=== PATIENT | male | born 1965 | race African-American/Black ===

== ENCOUNTER 2016-11-23 01:58 | Emergency (ER) | payer MEDICAID, OTHER ==
[~2016-11-23] VITALS: Ht 190.5 cm; Wt 134.7 kg
[~2016-11-23 01:58] MED LIST: ALBUTEROL SULF8.5 GM INH; AZITHROMYCIN250 MG ORAL; IBUPROFEN600 MG ORAL; NORCO 5-325 TA1 EACH ORAL; PREDNISONE20 MG ORAL
[2016-11-23] MEDS ORDERED: AMLODIPINE BESY10 MG ORAL (02:17)
[2016-11-23] MEDS ORDERED: METFORMIN HCL1000 M1 ORAL (02:17)
[2016-11-23] MEDS ORDERED: GLIPIZIDE5 MG ORAL (02:17)
[2016-11-23] MEDS ORDERED: HYDROCHLOROTHIA25 MG ORAL (02:17)
[2016-11-23] MEDS ORDERED: NORCO 10-325 T1 EACH ORAL (02:17)
[2016-11-23 02:40] LABS: APPEARANCE,URINE CLEAR; KETONES,URINE NEGATIVE (NEGATIVE); LEUKOCYTE ESTERASE ,URINE 1+ (NEGATIVE); NITRITE,URINE NEGATIVE (NEGATIVE); PH,URINE 5 (4.5-8.0); PROTEIN,URINE 2+ (NEGATIVE); UROBILINOGEN,URINE NORMAL MG/DL (0.0-1.0)
[2016-11-23 02:54] LABS: RBC,URINE 0-2 /HPF (0 - 0); SQUAMOUS EPITHELIAL CELL,UR FEW /LPF (NONE/OCC)
[2016-11-23] MEDS ORDERED: Ketorolac 60mg Inj IM ONE (03:45)
[2016-11-23] MEDS ORDERED: HYDROmorphone 1mg/ml Carpuject IM ONE (03:45)
[2016-11-23] MEDS ORDERED: CYCLOBENZAPRINE10 MG ORAL (03:55)
[2016-11-23 04:08] VITALS: BP 148/86
--- NOTE | 2016-11-23 04:21 | Emergency Room Report ---
History of Present Illness General Chief Complaint: Pain Source: Patient Present Illness HPI Patient is a 50-year-old male presented after increased right-sided shoulder pain. Patient prior history of rotator cuff injury to that side. Patient stated that he been having increased pain to the area. This has not been relieved by his usual medications. Patient had been having increased headache gradual onset. He denies any chest pain or shortness of breath. Patient prior history of diabetes as well as cigarette smoking. Pain is worse with movement to the right shoulder Allergies: Coded Allergies: No Known Allergies (Unverified , 11/23/16) Patient History Past Medical History: see triage record Reviewed Nursing Documentation: PMH: Agreed, PSxH: Agreed Nursing Documentation-PMH Hx Hypertension: Yes Hx Diabetes: Yes - Type 2DM Hx Seizures: Yes Review of Systems All Other Systems: negative except mentioned in HPI Physical Exam Vital Signs Date Time Temp Pulse Resp B/P Pulse Ox O2 Delivery O2 Flow Rate FiO2 11/23/16 02:13 99.1 106 16 124/84 98 Room Air General Appearance: well appearing, no apparent distress, alert, GCS 15 Head: normocephalic, atraumatic ENT: hearing grossly normal, normal voice Neck: full range of motion, supple Respiratory: normal breath sounds, no respiratory distress, speaking full sentences Gastrointestinal: normal inspection, soft Musculoskeletal: no calf tenderness Neurologic: normal inspection, alert, oriented x3, responsive, normal gait Psychiatric: mood/affect normal Skin: no rash Medical Decision Making Diagnostic Impression: Primary Impression: Hyperglycemia Additional Impression: Rotator cuff injury ER Course This presented for headache. Differential diagnoses included but was not limited to skull fracture, subarachnoid hemorrhage, meningitis, aneurysm, mass lesion, intracranial hemorrhage.Because of complexity of patient's case laboratory testing and imaging studies were ordered. The patient noted to have a moderately elevated blood sugar. Patient was advised dietary compliance. CT the head was ordered due to the patient's headache. CT the head read by radiology showed questionable low-lying cerebellar tonsils without evident mass or hemorrhage. The patient was advised to be more compliant with his diabetic diet. The patient is advised to follow up with primary care doctor in 1-2 days. Patient is advised to return if any worsening condition or if any changes in status that are concerning. Last Vital Signs Date Time Temp Pulse Resp B/P Pulse Ox O2 Delivery O2 Flow Rate FiO2 11/23/16 02:13 99.1 106 16 124/84 98 Room Air Status: improved Disposition: HOME, SELF-CARE Condition: Stable Scripts Cyclobenzaprine Hcl* (FLEXERIL*) 10 Mg Tablet 10 MG ORAL THREE TIMES A DAY, #20 TAB Prov: Logan Celaya 11/23/16 Patient Instructions: Hyperglycemia Logan Celaya Nov 23, 2016 04:21
--- NOTE | 2016-11-23 09:11 | Diagnostic Imaging Report ---
Indication: PAIN Technique: Continuous helical CT scanning of the head was performed without intravenous contrast material. Axial and coronal 5 mm sections were generated. Radiation dose was minimized using automated exposure control Dose: Total Dose Length Product - DLP [address] Dose Index - CTDIvol(s) 70.38 mGy. Comparison: None Findings: The ventricular system is normal in size and configuration. There is no shift of midline structures. No abnormal extra-axial fluid collections are noted. There is no evidence of intracerebral bleeding. No other abnormal high or low density areas are noted within the brain. Intact calvarium there are questionably low-lying cerebellar tonsils Visualized orbits and sinuses are unremarkable. Impression: Possible low lying cerebellar tonsils Otherwise normal CT scan of the head without contrast material. This agrees with the preliminary interpretation provided overnight by [facility] service. The CT scanner at [facility] is accredited by the [employer] and the scans are performed using protocols designed to limit radiation exposure to as low as reasonably achievable to attain images of sufficient resolution adequate for diagnostic evaluation.
== END 2016-11-23 04:08 | disposition home or self-care (01) ==
LOC: EMR 02:26
DX: S46.091A Other injury of muscle(s) and tendon(s) of the rotator cuff of right shoulder, initial encounter (principal); X58.XXXA Exposure to other specified factors, initial encounter; Y92.89 Other specified places as the place of occurrence of the external cause; E11.65 Type 2 diabetes mellitus with hyperglycemia
CPT/HCPCS: 70450; 81003; 96372; 99284; J1170

== ENCOUNTER 2018-03-31 12:31 | Emergency (ER) | payer MEDICAID ==
[~2018-03-31] VITALS: Ht 190.5 cm; Wt 134.7 kg
[~2018-03-31 12:31] MED LIST changes: +AMLODIPINE BESY10 MG ORAL; +CYCLOBENZAPRINE10 MG ORAL; +GLIPIZIDE5 MG ORAL; +HYDROCHLOROTHIA25 MG ORAL; +METFORMIN HCL1000 M1 ORAL; +NORCO 10-325 T1 EACH ORAL
[2018-03-31 12:52] VITALS: BP 161/99
--- NOTE | 2018-03-31 13:00 | Emergency Room Report ---
History of Present Illness General Chief Complaint: Abdominal Pain Source: Patient Present Illness HPI 52-year-old male with history of hypertension and diabetes as well as heavy tobacco smoker here complaining of 3 days of left lower abdominal pain and left flank pain. He denies any strenuous physical activity or fall. He is rating the pain 10 out of 10 and constant. Has not taken any medication for pain. Denies nausea, vomiting, fever, chills, diarrhea, blood in the stool, constipation. He reports that few days prior to the onset of his symptoms he felt a sharp pain in his chest which immediately went away without any radiation to jaw or arm. Denies shortness of breath and chest pain and palpitation at this moment. Denies recent travel, recent alcohol ingestion, or any drug use. Has not started any medication. Denies feeling a pulsatile mass in his abdomen. Denies urinary symptoms such as dysuria, hematuria, suprapubic pain.he is taking hydrochlorothiazide and amlodipine for HTN as well as metformin and glipizide for diabetes Allergies: Coded Allergies: No Known Allergies (Unverified , 11/23/16) Patient History Past Medical History: see triage record Past Surgical History: none Pertinent Family History: unable to obtain Social History: Reports: smoking - daily tobacco smoker 20 years Immunizations: UTD Reviewed Nursing Documentation: PMH: Agreed; PSxH: Agreed Nursing Documentation-PMH Past Medical History: No History, Except For Hx Hypertension: Yes Hx Diabetes: Yes - Type 2DM Hx Seizures: Yes Review of Systems All Other Systems: negative except mentioned in HPI Physical Exam Vital Signs Date Time Temp Pulse Resp B/P (MAP) Pulse Ox O2 Delivery O2 Flow Rate FiO2 03/31/18 12:32 98.2 97 17 161/99 97 Room Air Sp02 EP Interpretation: reviewed, normal General Appearance: normal inspection, well appearing, no apparent distress, alert, GCS 15 Head: normocephalic, atraumatic Eyes: bilateral eye normal inspection, bilateral eye PERRL ENT: normal ENT inspection, hearing grossly normal, normal pharynx, no angioedema Neck: normal inspection, full range of motion, supple Respiratory: normal inspection, chest non-tender, lungs clear, no rhonchi, no wheezing Cardiovascular #1: normal inspection, regular rate, rhythm, no edema, no gallop , no murmur Gastrointestinal: normal bowel sounds, no mass, no organomegaly, no peritonitis , no guarding, no pulsatile mass - no sign of AAA, tenderness - LLQ and left flank, no CVAT Rectal: deferred Genitourinary: deferred Musculoskeletal: normal inspection, digits/nails normal, gait/station normal, other - difficulty changing position from sitting to standingdue to left LQ pain Neurologic: normal inspection, alert, oriented x3, responsive Psychiatric: normal inspection, judgement/insight normal, memory normal Skin: normal inspection, normal color, no rash, warm/dry, palpation normal Lymphatic: normal inspection, no adenopathy, axilla node tender (R) Medical Decision Making PA Attestation all diagnoses and treatment plans are reviewed and discussed with my supervising physician Dr. Celaya Diagnostic Impression: Primary Impression: UTI (urinary tract infection) Additional Impressions: Fatty liver Diabetes type 2, uncontrolled PVC (premature ventricular contraction) Muscle strain ER Course 52-year-old male with history of hypertension and diabetes as well as heavy tobacco smoker here complaining of 3 days of left lower abdominal pain and left flank pain. He denies any strenuous physical activity or fall. He is rating the pain 10 out of 10 and constant. Has not taken any medication for pain. Denies nausea, vomiting, fever, chills, diarrhea, blood in the stool, constipation. He reports that few days prior to the onset of his symptoms he felt a sharp pain in his chest which immediately went away without any radiation to jaw or arm. Denies shortness of breath and chest pain and palpitation at this moment. Denies recent travel, recent alcohol ingestion, or any drug use. Has not started any medication. Denies feeling a pulsatile mass in his abdomen. Denies urinary symptoms such as dysuria, hematuria, suprapubic pain. Ddx considered but are not limited to AAA, diverticulitis, renal stone, diverticulosis, muscle strain, STEMI Vital signs: are WNL, pt. is afebrile H&PE are most consistent with fatty liver, muscle strain, UTI(possible prosthatitis), DMII uncontrolled, PVC ORDERS: abdominal CT, lipase, CBC, CMP, UA, EKG, troponin, urine tox. , cipro 500mg ED INTERVENTIONS: None required at this time. DISCHARGE: At this time pt. is stable for d/c to home. Will provide printed patient care instructions, and any necessary prescriptions. Care plan and follow up instructions have been discussed with the patient prior to discharge. glucose: 341, UA: 4+ glucose, plt 133, Hgb 14, leuk and WBC in UA, blood 1+ UA, EKG Diagnostic Results EP Interpretation: PVC ant leads, possible STEIM, Qwaves ant leads Rhythm: other ST Segments: other - PVC, Q waves ant leads CT/MRI/US Diagnostic Results CT/MRI/US Diagnostic Results : Imaging Test Ordered: CT abdomen no contrast Impression fatty liver CLINICAL HISTORY: PAIN TECHNIQUE: Axial computed tomography images of the abdomen and pelvis without intravenous contrast. CTDI is 18.84 mGy and DLP is 1155 mGy-cm. One or more of the following dose reduction techniques were used: automated exposure control, adjustment of the mA and/or kV according to patient size, use of iterative reconstruction technique. COMPARISON: No relevant prior studies available. FINDINGS: Lung bases: Unremarkable. ABDOMEN: Liver: Large fatty liver. Gallbladder and bile ducts: No calcified stones. No ductal dilation. Pancreas: Unremarkable. Spleen: Unremarkable. Adrenals: Unremarkable. Kidneys and ureters: Left pelvic kidney. No renal calculi or obstructive changes. Stomach and bowel: No beryl mural thickening. Nonobstructive bowel gas pattern. PELVIS: Appendix: Appendix not identified. Bladder: Unremarkable. Reproductive: Unremarkable. ABDOMEN and PELVIS: Intraperitoneal space: Unremarkable. Bones/joints: No acute fracture. Soft tissues: Unremarkable. Vasculature: Unremarkable. No abdominal aortic aneurysm. Lymph nodes: No enlarged lymph nodes. IMPRESSION: 1. Large fatty liver. 2. Left pelvic kidney. No renal calculi or obstructive changes. 3. Appendix not identified. Last Vital Signs Date Time Temp Pulse Resp B/P (MAP) Pulse Ox O2 Delivery O2 Flow Rate FiO2 03/31/18 12:46 97 17 Room Air 03/31/18 12:32 98.2 161/99 97 Disposition: HOME, SELF-CARE Condition: Stable Scripts Ciprofloxacin* (CIPRO*) 500 Mg Tablet 500 MG PO BID for 7 Days, #14 TAB Prov: Erica aHle 03/31/18 Patient Instructions: Abdominal Pain, Adult, Diabetes Mellitus and Food, Urinary Tract Infection, [id number] Additional Instructions: follow with primary care provider for management of diabetes, continue taking metformin and glipizide, Primary care provider to cardiology referral for abnormal EKG, take medication as directed, has primary care provider check for PSA and further examined prostate. Erica Hale Mar 31, 2018 13:00
--- NOTE | 2018-03-31 13:43 | Diagnostic Imaging Report ---
EXAM: CT Abdomen and Pelvis Without Intravenous Contrast CLINICAL HISTORY: PAIN TECHNIQUE: Axial computed tomography images of the abdomen and pelvis without intravenous contrast. CTDI is 18.84 mGy and DLP is 1155 mGy-cm. One or more of the following dose reduction techniques were used: automated exposure control, adjustment of the mA and/or kV according to patient size, use of iterative reconstruction technique. COMPARISON: No relevant prior studies available. FINDINGS: Lung bases: Unremarkable. ABDOMEN: Liver: Large fatty liver. Gallbladder and bile ducts: No calcified stones. No ductal dilation. Pancreas: Unremarkable. Spleen: Unremarkable. Adrenals: Unremarkable. Kidneys and ureters: Left pelvic kidney. No renal calculi or obstructive changes. Stomach and bowel: No beryl mural thickening. Nonobstructive bowel gas pattern. PELVIS: Appendix: Appendix not identified. Bladder: Unremarkable. Reproductive: Unremarkable. ABDOMEN and PELVIS: Intraperitoneal space: Unremarkable. Bones/joints: No acute fracture. Soft tissues: Unremarkable. Vasculature: Unremarkable. No abdominal aortic aneurysm. Lymph nodes: No enlarged lymph nodes. IMPRESSION: 1. Large fatty liver. 2. Left pelvic kidney. No renal calculi or obstructive changes. 3. Appendix not identified.
[2018-03-31 13:58] LABS: APPEARANCE,URINE CLEAR; BILIRUBIN, URINE NEGATIVE (NEGATIVE); COLOR,URINE PALE YELLOW; GLUCOSE, URINE (UA) 4+ (NEGATIVE); KETONES,URINE 1+ (NEGATIVE); LEUKOCYTE ESTERASE ,URINE 1+ (NEGATIVE); NITRITE,URINE NEGATIVE (NEGATIVE); PH,URINE 5 (4.5-8.0); PROTEIN,URINE 2+ (NEGATIVE); UROBILINOGEN,URINE NORMAL MG/DL (0.0-1.0)
[2018-03-31 14:05] LABS: BASOPHILS % (AUTO) 1.4 % (0.0-2.0); HEMATOCRIT 42.4 % (42.0-52.0); LYMPHOCYTES % (AUTO) 39.5 % (20.0-45.0); MEAN CORPUSCULAR VOLUME 86 FL (80-99); MONOCYTES % (AUTO) 8.6 % (1.0-10.0); NEUTROPHILS % (AUTO) 46.5 % (45.0-75.0); PLATELET COUNT 133 K/UL (150-450); RED BLOOD COUNT 4.94 M/UL (4.70-6.10); RED CELL DISTRIBUTION WIDTH 11.1 % (11.6-14.8); WHITE BLOOD COUNT 6.4 K/UL (4.8-10.8)
[2018-03-31 14:20] LABS: ANION GAP 9 mmol/L (5-15); BLOOD UREA NITROGEN 18 mg/dL (7-18); CALCIUM 8.8 MG/DL (8.5-10.1); CARBON DIOXIDE 27 MMOL/L (21-32); CHLORIDE 99 MMOL/L (98-107); CREATININE 1.1 MG/DL (0.55-1.30); POTASSIUM 3.5 MMOL/L (3.5-5.1); SODIUM 135 MMOL/L (136-145)
[2018-03-31 14:23] LABS: ALANINE AMINOTRANSFERASE 44 U/L (12-78); ALBUMIN 3.3 G/DL (3.4-5.0); ALBUMIN/GLOBULIN RATIO 0.8 (1.0-2.7); ALKALINE PHOSPHATASE 92 U/L (46-116); ASPARTATE AMINO TRANSFERASE 23 U/L (15-37); BILIRUBIN,TOTAL 0.3 MG/DL (0.2-1.0)
[2018-03-31] MEDS ORDERED: CIPRO500 MG PO (14:51)
[2018-03-31 16:15] VITALS: BP 157/89
== END 2018-03-31 14:00 | disposition home or self-care (01) ==
LOC: EMR 13:21
DX: N39.0 Urinary tract infection, site not specified (principal); K76.0 Fatty (change of) liver, not elsewhere classified; E11.9 Type 2 diabetes mellitus without complications; I49.3 Ventricular premature depolarization; I10 Essential (primary) hypertension; Z87.891 Personal history of nicotine dependence
CPT/HCPCS: 36415; 74176; 80053; 80307; 81003; 83690; 84484; 85025; 93005; 99284

== ENCOUNTER 2018-05-19 15:47 | Emergency (ER) | payer MEDICAID ==
[~2018-05-19] VITALS: Ht 190.5 cm; Wt 129.7 kg
[~2018-05-19 15:47] MED LIST changes: +CIPRO500 MG PO
--- NOTE | 2018-05-19 16:14 | NUR ---
ED Nurse Note: PT WALKED IN TO ER TODAY FROM HOME. AOX4. PT C/O PENILE PAIN, 6/10 AT UNDERSIDE OF PENIS X LAST NIGHT. PT DENIES TRAUMA OR INJURY. PT ALSO C/O SOME SWELLING, REDNESS, AND FOUL ODOR AT THE SAME SITE. PT DENIES PAINFUL URINATION OR DISCHARGE.
[2018-05-19 16:16] VITALS: BP 128/84
[2018-05-19] MEDS ORDERED: BACITRACIN15 GM TOPIC (16:20)
[2018-05-19 16:29] VITALS: BP 132/86
--- NOTE | 2018-05-19 16:30 | NUR ---
ED Nurse Note: PT LAYING PEACEFULLY IN BED IN NAD. AOX4. PRESCRIPTIONS AND DISCHARGE PAPERWORK EXPLAINED TO PT. PT VERBALIZES UNDERSTANDING AND ALL QUESTIONS ANSWERED. PRESCRIPTIONS AND DISCHARGE PAPERWORK GIVEN TO PT AND ID WRISTBAND REMOVED. PT WALKED OUT OF ER WITH STEADY GAIT AND ALL BELONGINGS.
--- NOTE | 2018-05-20 15:15 | Emergency Room Report ---
History of Present Illness General Chief Complaint: Male Urogenital Problems Source: Patient, Medical Record Present Illness HPI 52-year-old male presents ED for evaluation. Patient complaining of penile pain. States that yesterday he noticed that his penis was "very dry" he was able to pull back the foreskin, but with difficulty and pain. Denies any dysuria or hematuria. Denies any discharge. Denies any recent unprotected sex. Denies any scrotal pain. States that he was never circumcised. No other aggravating relieving factors. Denies any other associated symptoms Allergies: Coded Allergies: No Known Allergies (Unverified , 11/23/16) Patient History Past Medical History: DM, HTN, seizures Past Surgical History: none Pertinent Family History: none Social History: Denies: smoking, alcohol use, drug use Immunizations: UTD Reviewed Nursing Documentation: PMH: Agreed; PSxH: Agreed Nursing Documentation-PMH Hx Hypertension: Yes Hx Diabetes: Yes - Type 2DM Hx Seizures: Yes Review of Systems All Other Systems: negative except mentioned in HPI Physical Exam Vital Signs Date Time Temp Pulse Resp B/P (MAP) Pulse Ox O2 Delivery O2 Flow Rate FiO2 05/19/18 16:04 98.4 95 15 136/89 96 Room Air Sp02 EP Interpretation: reviewed, normal General Appearance: no apparent distress, alert, GCS 15, non-toxic Head: normocephalic Eyes: bilateral eye normal inspection, bilateral eye PERRL ENT: normal ENT inspection Neck: normal inspection Respiratory: normal inspection Cardiovascular #1: normal inspection Gastrointestinal: normal inspection Rectal: deferred Genitourinary: no CVA tenderness, other - foreskin unremarkable. able to pull back without difficulty. minimal erythema to the penile head. no urethral meatus erythema Musculoskeletal: normal inspection Neurologic: alert, oriented x3, responsive, motor strength/tone normal, sensory intact, speech normal Psychiatric: normal inspection Skin: normal inspection Lymphatic: normal inspection Medical Decision Making Diagnostic Impression: Primary Impression: Penile pain ER Course Hospital Course 52-year-old male presents to ED with penile pain Differential diagnoses include: balanitis, phimosis, paraphimosis Clinical course Patient placed on stretcher. After initial history, physical exam reveals a middle aged male in no acute distress. On exam the the foreskin appears to retract without difficulty. The penile head has some minimal erythema. No induration. No discharge. No scrotal pain. No urethral meatus erythema. Discussed findings with the patient. No urological emergency at this point. There is no evidence of phimosis or paraphimosis. Consideration for balanitis Will prescribe some topical antibiotic. Safe for discharge and close outpatient follow-up. We'll provide urology referrals Diagnosis - penile pain stable and discharged to home with prescription for bacitracin. Instructed to followup with urology. Instructed return to ED if symptoms recur or worsen Last Vital Signs Date Time Temp Pulse Resp B/P (MAP) Pulse Ox O2 Delivery O2 Flow Rate FiO2 05/19/18 16:29 98.5 82 17 132/86 99 Room Air Status: improved Disposition: HOME, SELF-CARE Condition: Stable Scripts Bacitracin (Bacitracin) 28.4 Gm Oint...g. 1 APPLIC TOPIC THREE TIMES A DAY, #28.4 GM Prov: Kalen Issa MD 05/19/18 Referrals: [facility],REFERRING (PCP) Valentín Caruso MD, Sameer M.D. Patient Instructions: Kalen Anton MD May 20, 2018 15:15
== END 2018-05-19 16:30 | disposition home or self-care (01) ==
LOC: EMR 16:15
DX: N48.89 Other specified disorders of penis (principal); I10 Essential (primary) hypertension; E11.9 Type 2 diabetes mellitus without complications; G40.909 Epilepsy, unspecified, not intractable, without status epilepticus
CPT/HCPCS: 99282

== ENCOUNTER 2019-01-13 21:04 | Emergency (ER) | payer MEDICAID ==
[~2019-01-13] VITALS: Ht 185.4 cm; Wt 129.3 kg
[~2019-01-13 21:04] MED LIST changes: +BACITRACIN15 GM TOPIC
[2019-01-13 21:17] VITALS: BP 146/90
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
[2019-01-13] MEDS ORDERED: HYDROcodone/Acetamin 5/325 tab ORAL ONE (21:45)
--- NOTE | 2019-01-13 21:47 | Emergency Room Report ---
History of Present Illness General Chief Complaint: Pain Source: Patient Present Illness HPI 53-year-old male who is right-hand dominant. He has a history of high blood pressure diabetes. He also has a history of chronic right shoulder pain. He was told many years ago that he has a torn rotator cuff. Is with chief complaint of right shoulder pain. Is been ongoing for about a week now. Worse with movement. Pain is sharp rating to the shoulder blade and down his back. No trauma. No fever chills. Worse with movement. Pain is 9 out of 10. No relief with [id number] medication. He said his doctor has not order an MRI or referral to orthopedic doctor. Allergies: Coded Allergies: No Known Allergies (Unverified , 11/23/16) Patient History Past Medical History: see triage record, old chart reviewed, DM, HTN Past Surgical History: other Pertinent Family History: none Social History: Denies: smoking Immunizations: other Reviewed Nursing Documentation: PMH: Agreed; PSxH: Agreed Nursing Documentation-PMH Past Medical History: No History, Except For Hx Hypertension: Yes Hx Diabetes: Yes - TYPE 2 Hx Seizures: Yes Review of Systems Eye: Denies: eye pain, blurred vision ENT: Denies: ear pain, nose congestion, throat swelling Respiratory: Denies: cough, shortness of breath Cardiovascular: Denies: chest pain, palpitations Gastrointestinal: Denies: abdominal pain, diarrhea, nausea, vomiting Musculoskeletal: Reports: joint pain; Denies: back pain Skin: Denies: rash Neurological: Denies: headache, numbness Endocrine: Denies: increased thirst, increased urine Hematologic/Lymphatic: Denies: easy bruising All Other Systems: negative except mentioned in HPI Physical Exam Vital Signs Date Time Temp Pulse Resp B/P (MAP) Pulse Ox O2 Delivery O2 Flow Rate FiO2 01/13/19 21:17 98.1 86 15 146/90 (108) 96 Room Air Vitals with high blood pressure Sp02 EP Interpretation: reviewed, normal General Appearance: well appearing, no apparent distress, alert, obese Head: normocephalic, atraumatic Eyes: bilateral eye PERRL, bilateral eye EOMI ENT: hearing grossly normal, normal pharynx Neck: full range of motion, supple, no meningismus Respiratory: chest non-tender, lungs clear, normal breath sounds Cardiovascular #1: regular rate, rhythm, no murmur Gastrointestinal: normal bowel sounds, non tender, no mass, no organomegaly, no bruit, non-distended Musculoskeletal: back normal, gait/station normal, normal range of motion, other - Diffuse right shoulder tenderness. Worse with movement. Sensation normal. No redness. Psychiatric: mood/affect normal Medical Decision Making Diagnostic Impression: Primary Impression: Arthralgia of shoulder region Qualified Codes: M25.511 - Pain in right shoulder ER Course This patient presents with shoulder pain. This is a chronic issue. No evidence of dislocation, septic joint to name a few. Will discharge home with outpatient MRI and Ortho follow-up. Other X-Ray Diagnostic Results Other X-Ray Diagnostic Results : X-Ray ordered: Shoulder x-rays, right # of Views/Limited Vs Complete: 3 View Indication: Pain EP Interpretation: Yes Interpretation: no dislocation, no soft tissue swelling, no fractures Impression: No acute disease Electronically Signed by: Jorge Webber MD Last Vital Signs Date Time Temp Pulse Resp B/P (MAP) Pulse Ox O2 Delivery O2 Flow Rate FiO2 01/13/19 21:17 98.1 86 15 146/90 96 Room Air Status: improved Disposition: HOME, SELF-CARE Condition: Stable Scripts Ibuprofen* (MOTRIN*) 600 Mg Tablet 600 MG ORAL THREE TIMES A DAY, #30 TAB 0 Refills Prov: Jorge Webber MD 01/13/19 Hydrocodone/Acetaminophen 7.5-325* (HYDROCODON-ACETAMINOPH 7.5-325*) 1 Each Tablet 1 TAB ORAL Q6H PRN for For Pain, #20 TAB 0 Refills Prov: Jorge Webber MD 01/13/19 Additional Instructions: Follow-up with your doctor in a week. Recommend outpatient testing with MRI and orthopedic referral. Return if symptoms worsen. Jorge Webber MD Jan 13, 2019 21:47
[2019-01-13] MEDS ORDERED: HYDROCODON-ACE1 EA16 ORAL (22:07)
[2019-01-13] MEDS ORDERED: IBUPROFEN600 MG ORAL (22:07)
[2019-01-13 22:15] VITALS: BP 138/88
--- NOTE | 2019-01-13 22:15 | NUR ---
ER DISCHARGE NOTE: Patient is cleared to be discharged per ERMD, pt is aox4, on room air, with stable vital signs. pt was given dc and prescription instructions, pt was able to verbalize understanding, pt id band removed without complications. pt is able to ambulate with steady gait. pt took all belongings.
--- NOTE | 2019-01-14 10:50 | Diagnostic Imaging Report ---
Indication: Right shoulder pain COMPARISON: None Findings: 3 views of the right shoulder were obtained. No acute fractures, malalignment, erosions or periostitis are identified. Soft tissues are unremarkable. Impression: Negative for acute injury
== END 2019-01-13 22:15 | disposition home or self-care (01) ==
LOC: EMR 21:30
DX: M25.511 Pain in right shoulder (principal); I10 Essential (primary) hypertension; E11.9 Type 2 diabetes mellitus without complications; G40.909 Epilepsy, unspecified, not intractable, without status epilepticus
CPT/HCPCS: 73030; Z7502; 99283

== ENCOUNTER 2019-07-04 19:22 | Emergency (ER) | payer MEDICAID ==
[~2019-07-04] VITALS: Ht 190.5 cm; Wt 132.9 kg
[~2019-07-04 19:22] MED LIST changes: +HYDROCODON-ACE1 EA16 ORAL
[2019-07-04 19:45] VITALS: BP 157/93
--- NOTE | 2019-07-04 19:45 | NUR ---
ED Nurse Note: Pt walked into ED for c/o R shoulder pain s/p fall. Pt tripped and fell on R arm. Pt denies LOC or hitting his head. Pt is aaox4, no acute distress noted.
[2019-07-04] MEDS ORDERED: Methocarbamol 750mg tab ORAL ONE (20:00)
--- NOTE | 2019-07-04 20:30 | NUR ---
ED Nurse Note: Pt placed in arm sling by RN as requested by ER PA.
--- NOTE | 2019-07-04 20:31 | Diagnostic Imaging Report ---
Indication: Right shoulder pain COMPARISON: None Findings: 3 views of the right shoulder were obtained. No acute fractures, malalignment, erosions or periostitis are identified. There is a focal lucency over the right lateral deltoid muscle which may be a laceration injury. Correlate clinically. Impression: Negative for acute fracture or malalignment
[2019-07-04] MEDS ORDERED: IBU800 MG PO (20:33)
[2019-07-04] MEDS ORDERED: ROBAXIN-750750 MG PO (20:33)
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
[2019-07-04 20:40] VITALS: BP 148/75
--- NOTE | 2019-07-04 20:40 | NUR ---
ER DISCHARGE NOTE: Patient is cleared to be discharged per ERMD, pt is aox4, on room air, with stable vital signs. pt was given dc and prescription instructions, pt was able to verbalize understanding, pt id band removed. pt is able to ambulate with steady gait. pt took all belongings.
== END 2019-07-04 20:40 | disposition home or self-care (01) ==
LOC: EMR 19:50
DX: S46.911A Strain of unspecified muscle, fascia and tendon at shoulder and upper arm level, right arm, initial encounter (principal); W19.XXXA Unspecified fall, initial encounter; Y92.9 Unspecified place or not applicable; M19.011 Primary osteoarthritis, right shoulder; I10 Essential (primary) hypertension; E11.9 Type 2 diabetes mellitus without complications
CPT/HCPCS: 73030; Z7502; 99283